=== PATIENT | male | born 1970 | race African-American/Black ===

== ENCOUNTER 2025-01-08 08:55 | Outpatient (AMB) | payer MEDICAID, SELFPAY ==
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
[2025-01-08 09:15] VITALS: BP 159/91; PULSE 105; RESP 18; TEMP 36.8; O2SAT 94; BMI 35.6
--- NOTE | 2025-01-08 09:17 | XR_ITS ---
Examination:Right hip AP, lateral, AP pelvis 3 views Technique: Hip AP lateral, AP pelvis, 3 views Exam date and time:January 08, 2025 0932 hours INDICATIONS: Patient fell 4 months ago with injury of the right hip, right hip pain. FINDINGS: No right hip fracture or dislocation Moderate bilateral hip osteoarthritis Orthopedic screw overlies the right acetabulum IMPRESSION: No acute hip or pelvic fracture Moderate bilateral hip osteoarthritis.
== END 2025-01-08 09:20 | disposition home or self-care (01) ==
LOC: HODSRG 08:55
PROVIDERS: PCP Physician Assistant; Referring Provider Physician Assistant; Supervising Provider Orthopaedic Surgery Adult Reconstructive Orthopaedic Surgery; Visit Provider Orthopaedic Surgery Adult Reconstructive Orthopaedic Surgery
DX: M16.11 Unilateral primary osteoarthritis, right hip (principal); M25.551 Pain in right hip
CPT/HCPCS: 73502; 99213; G0463

== ENCOUNTER 2025-02-05 08:41 | Outpatient (AMB) | payer MEDICAID, SELFPAY ==
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
[2025-02-05 08:55] VITALS: BP 138/87; PULSE 74; RESP 18; TEMP 36.6; O2SAT 99; BMI 36.4
== END 2025-02-05 09:14 | disposition home or self-care (01) ==
LOC: HODSRG 08:41
PROVIDERS: PCP Physician Assistant; Referring Provider Physician Assistant; Supervising Provider Orthopaedic Surgery Adult Reconstructive Orthopaedic Surgery; Visit Provider Orthopaedic Surgery Adult Reconstructive Orthopaedic Surgery
DX: M16.11 Unilateral primary osteoarthritis, right hip (principal); M70.61 Trochanteric bursitis, right hip; M25.551 Pain in right hip
CPT/HCPCS: 20610; 99213; J1010; J2795; G0463